=== PATIENT | male | born 1980 | race Caucasian/White ===

== ENCOUNTER → 2017-03-15 | Outpatient (CLI) | payer OTHER ==
[~2017-03-15] MED LIST: CITA-139 PO; GADOBENATE 529MG/1ML 15ML VIAL IVP ONE; NAP250 PO; OXYB5TAB86 PO; REBIF44PT SQ; SOLI10TA8 PO; VALA100062 PO; [UNRECOGNIZED DRUG - OTHER]
--- NOTE | 2017-03-15 14:37 | RADIOLOGY IMAGING REPORT ---
[place] [facility] [place] NAME: Jonathan Fried : 1980 MR: [id number] V: [id number] EXAM DATE: ORDERING PHYSICIAN: ZIA COOK TECHNOLOGIST: Location: [facility] [place] Patient: Jonathan Fried : 1980 Visit/Account:[id number] Date of Sevice: 03/15/2017 BRAIN W W/O CONTRAST Provided history: MS follow-up Additional pertinent history: none TECHNIQUE: Multiplanar multisequence brain MRI was performed without and with intravenous contrast Contrast dose: 15 mL of MultiHance. Additional focused sequences: Additional FLAIR sequences in the sagital and coronal planes COMPARISON STUDIES: Limited sequences available from MRI of 11/24/15, a coronal FLAIR sequence and a volume post gadolinium T1 axial sequence as well as full brain MRI dated 10/22/14 FINDINGS: Brain volume: Normal Acute ischemia: None Chronic cortical and ganglionic ischemia: none significant Hemorrhage: None Masses / edema: None White matter lesions : Reidentified are numerous deep and periventricular T2 hyperintensities, many which have a perpendicular orientation to the surface of the lateral ventricles, typical of MS. Ther e is confluence about the posterior body and occipital horn junctions also unchanged. Additional sub cortical lesions are also stable. None of these demonstrate enhancement after gadolinium. No clear evidence of new lesion. Vessels: Normal Extra-axial: None Calvarium / scalp: Negative Skull base / infratemporal fossa: negative Visualized sinuses / orbits / upper neck: Stable benign retention cysts both maxillary sinuses. IMPRESSION: Stable nonenhancing MS plaques. No new lesions are identified. No hemorrhage, intracranial mass or ischemia. Report Dictated By: Darwin Puentes MD at 03/15/2017 2:28 PM Report E-Signed By: Darwin Puentes MD at 03/15/2017 2:33 PM WSN:[id number]
== END ==
LOC: MRI 02:43
PROVIDERS: ATTEND Internal Medicine Cardiovascular Disease
DX: G35 Multiple sclerosis (principal)
CPT/HCPCS: 70553; A9577

== ENCOUNTER → 2017-08-29 | Outpatient (CLI) | payer OTHER ==
[~2017-08-29] MED LIST changes: -CITA-139 PO; +CITA-145 PO; +DEXTROSE 5%(*) 100 ML BAG 100 ML IVPB PRN; +LIDOCAINE/SOD BICARB 8.4% SYR ID PRN; +NS(*) 0.9% 100 ML BAG 100 ML IVPB PRN
--- NOTE | 2017-08-29 17:09 | RADIOLOGY IMAGING REPORT ---
FACILITY: [facility] - [place] PATIENT NAME: Jonathan Fried : 1980 MR: [id number] V: [id number] EXAM DATE: ORDERING PHYSICIAN: BEBETO COOK TECHNOLOGIST: Location: [facility] - [place] Patient: Jonathan Fried : 1980 Visit/Account:[id number] Date of Sevice: 08/29/2017 BRAIN W W/O CONTRAST Provided history: MS Additional pertinent history: none TECHNIQUE: Multiplanar multisequence brain MRI was performed without and with intravenous contrast Contrast dose: 15 mL of MultiHance. Additional focused sequences: Sagittal FLAIR COMPARISON STUDIES: Last MRI 03/15/17 FINDINGS: Brain volume: Normal Acute ischemia: None Chronic cortical and ganglionic ischemia: none significant Hemorrhage: None Masses / edema: None White matter lesions : Reidentified are multiple deep and periventricular T2 hyperintensities many w hich are perpendicular to the surface of lateral ventricles, typical of MS. These are unchanged in n umber and size from the last exam. Additional scattered subcortical lesions are also stable. There is relative sparing of the temporal lobes, brainstem and cerebellum. There are no enhancing lesions. Vessels: Normal Extra-axial: None Calvarium / scalp: Negative Skull base / infratemporal fossa: negative Visualized sinuses / orbits / upper neck: Stable benign retention cysts both exercises. Cerebellar tonsils in normal position. IMPRESSION: Stable nonenhancing MS plaques. No new lesions. No hemorrhage or ischemia. Report Dictated By: Darwin Puentes MD at 08/29/2017 5:00 PM Report E-Signed By: Darwin Puentes MD at 08/29/2017 5:05 PM WSN:[id number]
--- NOTE | 2017-08-29 17:24 | RADIOLOGY IMAGING REPORT ---
[place] [facility] [place] NAME: Jonathan Fried : 1980 MR: [id number] V: [id number] EXAM DATE: ORDERING PHYSICIAN: BEBETO COOK TECHNOLOGIST: [place] [facility] [place] : 1980 Visit/Account:[id number] Date of Sevice: 08/29/2017 C SPINE W W/O CONTRAST, T SPINE W W/O CONTRAST Provided history: MS Additional pertinent history: none TECHNIQUE: Multiplanar multisequence cervical and thoracic MRI was performed without and with intr avenous contrast Contrast dose: 15 mL of MultiHance. COMPARISON STUDIES: MRI cervical spine 10/29/12 and report from MRI thoracic spine 05/29/12. The [facility] spine images are off-line. FINDINGS: Extra-spinal soft tissues: Negative Cranio-cervical junction / included posterior fossa: normal Alignment: normal Potentially significant osseous lesions: none Cervical cord: A dominant ovoid shaped T2 hyperintensity in the right dorsal cord and prior study of the mid C2 level has prominently regressed and signal since the last study. No longer demonstrates a ny evidence of enhancement. Additional T2 hyperintensities and dorsal cord at C2-3, lower C3 and sma ller areas scattered elsewhere in the cord on prior study have become less evident. There is no new cervical cord lesion and there is no abnormal enhancement currently. Thoracic cord: Potential abnormal hyperintensity in the anterior surface the cord at mid thoracic lev els from T4 through T6 and think are very likely artifactual. These do not persist on all sequences. There is no abnormal enhancement. Disc Spaces: C2-C3: negative C3-C4: Preserved height with mild degeneration or no herniation or stenosis. C4-C5: Preserved height with mild degeneration. No herniation or significant stenosis. C5-C6: Mild narrowing and degeneration, similar to prior. No herniation or significant stenosis. C6-C7: negative C7-T1: negative Upper T spine: negative Mid T spine: Minor narrowing at T5-6, T6-7 and T7-8 without herniation or significant stenosis. Lower T spine: Mild disc space narrowing without herniation. A mild disk-osteophyte complex at the T11-12 level minimally deflects the cord posteriorly and result s in mild narrowing the central canal. By report that is similar to prior. Images are off-line and not available for direct comparison.. T12-L1 is normal. IMPRESSION: 1. Much improved appearance of the cervical cord compared to previous study of 10/29/12. Minimal en hancement a prior has resolved. No new cord lesions. 2. No clear evidence of involvement of the thoracic cord. 3. Mild narrowing central canal T11-12 report similar to prior examination. No high-grade central s tenosis or foraminal stenosis. Report Dictated By: Darwin Puentes MD at 08/29/2017 5:05 PM Report E-Signed By: Darwin Puentes MD at 08/29/2017 5:18 PM WSN:[id number]
--- NOTE | 2017-08-29 17:24 | RADIOLOGY IMAGING REPORT ---
FACILITY: [facility] - [place] PATIENT NAME: Jonathan Fried : 1980 MR: [id number] V: [id number] EXAM DATE: ORDERING PHYSICIAN: BEBETO COOK TECHNOLOGIST: Location: Patient: Jonathan Fried : 1980 Visit/Account:[id number] Date of Sevice: 08/29/2017 C SPINE W W/O CONTRAST, T SPINE W W/O CONTRAST Provided history: MS Additional pertinent history: none TECHNIQUE: Multiplanar multisequence cervical and thoracic MRI was performed without and with intr avenous contrast Contrast dose: 15 mL of MultiHance. COMPARISON STUDIES: MRI cervical spine 10/29/12 and report from MRI thoracic spine 05/29/12. The [facility] spine images are off-line. FINDINGS: Extra-spinal soft tissues: Negative Cranio-cervical junction / included posterior fossa: normal Alignment: normal Potentially significant osseous lesions: none Cervical cord: A dominant ovoid shaped T2 hyperintensity in the right dorsal cord and prior study of the mid C2 level has prominently regressed and signal since the last study. No longer demonstrates a ny evidence of enhancement. Additional T2 hyperintensities and dorsal cord at C2-3, lower C3 and sma ller areas scattered elsewhere in the cord on prior study have become less evident. There is no new cervical cord lesion and there is no abnormal enhancement currently. Thoracic cord: Potential abnormal hyperintensity in the anterior surface the cord at mid thoracic lev els from T4 through T6 and think are very likely artifactual. These do not persist on all sequences. There is no abnormal enhancement. Disc Spaces: C2-C3: negative C3-C4: Preserved height with mild degeneration or no herniation or stenosis. C4-C5: Preserved height with mild degeneration. No herniation or significant stenosis. C5-C6: Mild narrowing and degeneration, similar to prior. No herniation or significant stenosis. C6-C7: negative C7-T1: negative Upper T spine: negative Mid T spine: Minor narrowing at T5-6, T6-7 and T7-8 without herniation or significant stenosis. Lower T spine: Mild disc space narrowing without herniation. A mild disk-osteophyte complex at the T11-12 level minimally deflects the cord posteriorly and result s in mild narrowing the central canal. By report that is similar to prior. Images are off-line and not available for direct comparison.. T12-L1 is normal. IMPRESSION: 1. Much improved appearance of the cervical cord compared to previous study of 10/29/12. Minimal en hancement a prior has resolved. No new cord lesions. 2. No clear evidence of involvement of the thoracic cord. 3. Mild narrowing central canal T11-12 report similar to prior examination. No high-grade central s tenosis or foraminal stenosis. Report Dictated By: Darwin Puentes MD at 08/29/2017 5:05 PM Report E-Signed By: Darwin Puentes MD at 08/29/2017 5:18 PM WSN:[id number]
== END ==
LOC: MRI 01:12
PROVIDERS: ATTEND Specialist
DX: M48.02 Spinal stenosis, cervical region (principal); G35 Multiple sclerosis
CPT/HCPCS: 70553; 72156; 72157; A9577

== ENCOUNTER 2017-09-03 11:28 | Outpatient (RCR) | payer OTHER ==
[2017-08-30 10:06] VITALS: BP 138/97
[2017-08-30] MEDS: NS(*) 0.9% 100 ML BAG 100 ML IVPB PRN (11:01)
[2017-08-30] MEDS: methylPREDNIS SUC* 1000 MG/8ML 1,000 MG in NS(*) 0.9% 250 ML BAG 250 ML IV PRN (11:01)
[2017-08-30 11:42] VITALS: BP 141/90
[2017-08-30 12:15] VITALS: BP 132/81
[2017-08-31 11:39] VITALS: BP 142/83
[2017-08-31] MEDS: NS(*) 0.9% 100 ML BAG 100 ML IVPB PRN (11:48)
[2017-08-31] MEDS: methylPREDNIS SUC* 1000 MG/8ML 1,000 MG in NS(*) 0.9% 250 ML BAG 250 ML IV PRN (11:49)
[2017-08-31 12:51] VITALS: BP 130/76
[2017-09-01] MEDS: methylPREDNIS SUC* 1000 MG/8ML 1,000 MG in NS(*) 0.9% 250 ML BAG 250 ML IV PRN (09:27)
[2017-09-01] MEDS: NS(*) 0.9% 100 ML BAG 100 ML IVPB PRN (09:27)
[2017-09-01 09:30] VITALS: BP 125/65
[2017-09-01 10:30] VITALS: BP 132/78
[2017-09-02] MEDS: NS(*) 0.9% 100 ML BAG 100 ML IVPB PRN (12:25)
[2017-09-02] MEDS: methylPREDNIS SUC* 1000 MG/8ML 1,000 MG in NS(*) 0.9% 250 ML BAG 250 ML IV PRN (12:26)
[~2017-09-03 11:28] MED LIST changes: -GADOBENATE 529MG/1ML 15ML VIAL IVP ONE; -NS(*) 0.9% 100 ML BAG 100 ML IVPB PRN
[2017-09-03 11:47] VITALS: BP 125/79
[2017-09-03] MEDS: methylPREDNIS SUC* 1000 MG/8ML 1,000 MG in NS(*) 0.9% 250 ML BAG 250 ML IV PRN (12:03)
[2017-09-03 13:06] VITALS: BP 120/63
== END 2017-09-04 15:44 | disposition home or self-care (01) ==
LOC: SPU 11:28
PROVIDERS: ATTEND Specialist
DX: G35 Multiple sclerosis (principal)
CPT/HCPCS: 96365; J2930; J7050